=== PATIENT | male | born 1945 | race African-American/Black ===

== ENCOUNTER 2020-05-21 15:37 | Emergency (ER) | payer SELFPAY ==
[~2020-05-21] VITALS: Ht 182.9 cm; Wt 90.7 kg
[2020-05-21 16:00] VITALS: BP 140/82
--- NOTE | 2020-05-21 16:00 | NUR ---
EXAMINED BY SHAYLEE PA X-RAYS REQUESTD
--- NOTE | 2020-05-21 16:00 | NUR ---
X-RAYS COMPLETED DISCHARGED HOME WITH INSTRUCTION AND RX FOLLOW UP WITH PMD
--- NOTE | 2020-05-21 16:23 | Diagnostic Imaging Report ---
EXAM: XR Right Ankle Complete, 3 or More Views CLINICAL HISTORY: TRAUMA TECHNIQUE: Frontal, lateral and oblique views of the right ankle. COMPARISON: No relevant prior studies available. FINDINGS: Bones/joints: Unremarkable. No acute fracture. No dislocation. Soft tissues: Diffuse soft tissue swelling. Vasculature: Atherosclerotic vascular disease. IMPRESSION: Diffuse soft tissue swelling. No acute fracture or malalignment.
--- NOTE | 2020-05-21 17:06 | Diagnostic Imaging Report ---
EXAM: CT Cervical Spine Without Intravenous Contrast CLINICAL HISTORY: TRAUMA TECHNIQUE: Axial computed tomography images of the cervical spine without intravenous contrast. CTDI is 20.2 mGy and DLP is 493 mGy-cm. One or more of the following dose reduction techniques were used: automated exposure control, adjustment of the mA and/or kV according to patient size, use of iterative reconstruction technique. COMPARISON: No relevant prior studies available. FINDINGS: Vertebrae: Unremarkable. No acute fracture. Discs/spinal canal/neural foramina: Moderate to severe degenerative disc space narrowing at C5-6. Soft tissues: Unremarkable. IMPRESSION: No acute fracture or malalignment. EXAM: CT Cervical Spine Without Intravenous Contrast CLINICAL HISTORY: TRAUMA TECHNIQUE: Axial computed tomography images of the cervical spine without intravenous contrast. CTDI is 20.2 mGy and DLP is 493 mGy-cm. One or more of the following dose reduction techniques were used: automated exposure control, adjustment of the mA and/or kV according to patient size, use of iterative reconstruction technique. COMPARISON: No relevant prior studies available. FINDINGS: Vertebrae: Unremarkable. No acute fracture. Normal alignment. Discs/spinal canal/neural foramina: Moderate to severe degenerative disc space narrowing at C5-6. Soft tissues: Unremarkable. Vasculature: Note is made of aneurysm coil in the left temporal region of the brain. 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
--- NOTE | 2020-05-21 17:26 | Diagnostic Imaging Report ---
CT HEAD Without Contrast HISTORY: Trauma TECHNIQUE: One or more of the following dose reduction techniques were used: automated exposure control, adjustment of the mA and/or kV according to patient size, use of iterative reconstruction technique. One or more of the following dose reduction techniques were used: automated exposure control, adjustment of the mA and/or kV according to patient size, use of iterative reconstruction technique. Total Exam volume computed tomography dose index (CTDIvol) = 20.2 mGy and Dose Length Product (DLP) = 493 mGY-c TECHNIQUE: Multiple, contiguous 2.5 mm axial cuts of the brain are obtained from the posterior fossa to the cranial vault. Coronal reformatted images provided. No IV contrast is administered. COMPARISON: None FINDINGS: No intracranial hemorrhage, abnormal intra- or extra-axial collections or parenchymal lesions are seen. There are involutional changes with prominence of the sulci, basal cisterns and ventricles. Scattered white matter hypoattenuations are present, likely from small vessel disease. The dash-white differentiation is preserved. No evidence of mass effect, midline shift, or edema. Left-sided aneurysm clips. Left basal ganglia prior lacunar infarct. Prior infarct in the left temporal lobe with volume loss The osseous structures are unremarkable. The visualized portions of the paranasal sinuses are clear. IMPRESSION: 1. No acute intracranial process. 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 Involutional changes with small vessel disease.
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
--- NOTE | 2020-05-21 17:46 | Diagnostic Imaging Report ---
CT CHEST Without Contrast HISTORY: Trauma TECHNIQUE: One or more of the following dose reduction techniques were used: automated exposure control, adjustment of the mA and/or kV according to patient size, use of iterative reconstruction technique. One or more of the following dose reduction techniques were used: automated exposure control, adjustment of the mA and/or kV according to patient size, use of iterative reconstruction technique. Total Exam volume computed tomography dose index (CTDIvol) = 9.8 mGy and Dose Length Product (DLP) = 659.7 mGY-c COMPARISON: None TECHNIQUE: Multiple, contiguous 5 mm axial cuts of the chest are obtained. No IV contrast is administered. Axial images as well as sagittal and coronal reformatted images are available. FINDINGS: Left-sided pacer device in place. Sternotomy wires and mediastinal surgical changes with aorta and coronary artery atherosclerosis. No mass lesion, adenopathy or effusions are seen. Linear scarring versus atelectasis at the lung bases. The aorta is normal caliber. The cardiomediastinal structures are normal. The osseous structures are unremarkable. Calcified granuloma in the left lower lobe with a left lower lobe pulmonary nodule measuring 10 mm. IMPRESSION: Linear scarring versus atelectasis at the lung bases. Left lower lobe pulmonary nodule. Recommend follow-up chest CT in 3 months to evaluate for change. No fractures appreciated. CT ABDOMEN + PELVIS Without Contrast HISTORY: Trauma TECHNIQUE: One or more of the following dose reduction techniques were used: automated exposure control, adjustment of the mA and/or kV according to patient size, use of iterative reconstruction technique. One or more of the following dose reduction techniques were used: automated exposure control, adjustment of the mA and/or kV according to patient size, use of iterative reconstruction technique. Total Exam volume computed tomography dose index (CTDIvol) = 9.8 mGy and Dose Length Product (DLP) = 659.7mGY-c TECHNIQUE: Multiple, contiguous axial cuts of the abdomen and pelvis are obtained from the lung bases to the ischial tuberosities. No IV or oral contrast is given. Sagittal and coronal reformatted images are available. COMPARISON: None FINDINGS: Linear atelectasis versus scarring in the lower lobes. The liver and spleen are normal in size and free of mass lesions. Contracted gallbladder with layering sludge versus gallstones. Fatty changes of the pancreas without inflammation. Nonobstructing calcification in the left kidney.. The adrenal gland are unremarkable. The kidneys are normal in size and contour. No hydronephrosis. The appendix is unremarkable, as is the rest of the GI tract. No adenopathy or extraluminal air. The osseous structures are intact. Tortuous abdominal aorta and iliac arteries with atherosclerotic disease without aneurysm. Prominent prostate gland with multiple pelvic phleboliths. Urinary bladder is underdistended. Degenerative changes of the hips and spine and sacroiliac joints. IMPRESSION: Layering sludge versus gallstones in the gallbladder with contracted gallbladder. Nonobstructing calculus in the left kidney. Diffuse degenerative changes. No free air or free fluid or bowel obstruction. No fractures appreciated.
[2020-05-21] MEDS ORDERED: ROBAXIN-500MG ORAL (17:51)
[2020-05-21] MEDS ORDERED: LIDODERM700 M1 TOPIC (17:51)
[2020-05-21] MEDS ORDERED: TYLENOL EXTRA500 MG ORAL (17:51)
[2020-05-21] MEDS ORDERED: CEPHALEXIN500 MG ORAL (18:02)
== END 2020-05-21 16:30 | disposition home or self-care (01) ==
LOC: EMR 15:45
DX: S00.93XA Contusion of unspecified part of head, initial encounter (principal); S16.1XXA Strain of muscle, fascia and tendon at neck level, initial encounter; S39.012A Strain of muscle, fascia and tendon of lower back, initial encounter; L03.115 Cellulitis of right lower limb; R91.1 Solitary pulmonary nodule; I10 Essential (primary) hypertension; V43.62XA Car passenger injured in collision with other type car in traffic accident, initial encounter; Y92.411 Interstate highway as the place of occurrence of the external cause
CPT/HCPCS: 70450; 71250; 72125; 74176; 99284